=== PATIENT | male | born 1935 | race Caucasian/White ===

== ENCOUNTER → 2017-03-30 | Outpatient (CLI) | payer OTHER, BC ==
[~2017-03-30] MED LIST: ADVAIR HFA115 MCG/21 INH; AUGMENTIN 500-1 EACH PO; CALCIUM 600 +1 EAC1 PO; CIPRO500 MG PO; FLOMAX0.4 MG PO; HYDROCODONE-AP1 EAC6 PO; MULTIVITAMINS1 EAC7 PO; NORCO 5-325 TA1 EACH PO; PANTOPRAZOLE SO40 M1 PO; SINGULAIR 10 MG10 M1 PO; VENTOLIN HFA 1818 GM INH
== END ==
LOC: RAD 16:23
DX: R05 Cough (principal)